=== PATIENT | male | born 2000 | race Caucasian/White ===

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

== ENCOUNTER 2022-04-09 23:29 | Emergency (ER) | payer OTHER ==
[~2022-04-09] VITALS: Ht 175.3 cm; Wt 59.3 kg
[2022-04-09 23:29] VITALS: BP 122/84
[~2022-04-09 23:29] MED LIST: CLON0.2T; MOTR200T44 PO
== END 2022-04-10 01:47 | disposition left against medical advice (07) ==
LOC: M ED 23:29
DX: Z53.21 Procedure and treatment not carried out due to patient leaving prior to being seen by health care provider (principal)

== ENCOUNTER 2023-03-07 14:26 | Emergency (ER) | payer OTHER ==
[~2023-03-07] VITALS: Ht 172.7 cm; Wt 60.4 kg
[2023-03-07] MEDS ORDERED: methocarbamoL 500 MG TAB PO ONE (18:10)
[2023-03-07] MEDS ORDERED: IBUPROFEN 600MG TAB PO ONE (18:10)
[2023-03-07] MEDS ORDERED: METH-1164 PO (20:09)
[2023-03-07 20:17] VITALS: BP 113/71; TEMP 98.8; O2SAT 97
== END 2023-03-07 20:19 | disposition home or self-care (01) ==
LOC: M ED 14:26
DX: S13.4XXA Sprain of ligaments of cervical spine, initial encounter (principal); S23.3XXA Sprain of ligaments of thoracic spine, initial encounter; V49.40XA Driver injured in collision with unspecified motor vehicles in traffic accident, initial encounter; Z79.899 Other long term (current) drug therapy